=== PATIENT | female | born 1970 | race Two or more races ===

== ENCOUNTER 2016-10-18 19:22 | Emergency (ER) | payer MEDICAID ==
--- NOTE | 2016-10-18 19:49 | EDPHY ---
H & P Stated Complaint: left knee pain and swelling x1 week Time Seen by Provider: 10/18/16 19:39 HPI/ROS: CHIEF COMPLAINT: Left knee pain HISTORY OF PRESENT ILLNESS: The patient is a 46-year-old female who comes to the emergency department complaining of left knee pain for the last 6 days. She states that she was at work carrying out the trash and did not notice a 3 inch drop in the cement. She came down hard on her left knee. She did not fall to the ground but simply stomped hard. She had knee pain immediately that has continued and even worsened over the last few days. She is able to ambulate. She does not feel any laxity. She has an old left knee injury from a decade ago after a fall at [employer]. She had to wear a brace and had some ligamentous injuries but did not have any surgery. She states that her knee swelling progressively throughout the day but that it improves when she elevated at night. REVIEW OF SYSTEMS: Constitutional: denies: chills, fever, recent illness, recent injury EENTM: denies: blurred vision, double vision, nose congestion Respiratory: denies: cough, shortness of breath Cardiac: denies: chest pain, irregular heart rate, lightheadedness, palpitations Gastrointestinal/Abdominal: denies: abdominal pain, diarrhea, nausea, vomiting, blood streaked stools Genitourinary: denies: dysuria, frequency, hematuria, pain Musculoskeletal: See HPI Skin: denies: lesions, rash, jaundice, bruising Neurological: denies: headache, numbness, paresthesia, tingling, dizziness, weakness Hematologic/Lymphatic: denies: blood clots, easy bleeding, easy bruising Immunologic/allergic: denies: HIV/AIDS, transplant EXAM: GENERAL: Well-appearing, obese and in no acute distress. HEAD: Atraumatic, normocephalic. EYES: Pupils equal round and reactive to light, extraocular movements intact, sclera anicteric, conjunctiva are normal. ENT: TMs normal, nares patent, oropharynx clear without exudates. Moist mucous membranes. NECK: Normal range of motion, supple without lymphadenopathy or JVD. LUNGS: Breath sounds clear to auscultation bilaterally and equal. No wheezes rales or rhonchi. HEART: Regular rate and rhythm without murmurs, rubs or gallops. ABDOMEN: Soft, nontender, normoactive bowel sounds. No guarding, no rebound. No masses appreciated. BACK: No CVA tenderness, no spinal tenderness, step-offs or deformities EXTREMITIES: Left knee pain, mild effusion, no erythema, moderate tenderness to tibial plateau medially and laterally. NEUROLOGICAL: Cranial nerves II through XII grossly intact. Normal speech, normal gait. 5/5 strength, normal movement in all extremities, normal sensation PSYCH: Normal mood, normal affect. SKIN: Warm, dry, normal turgor, no visible rashes or lesions. Source: Patient Exam Limitations: No limitations - Personal History LMP (Females 10-55): Irregular Current Tetanus/Diphtheria Vaccine: No Current Tetanus Diphtheria and Acellular Pertussis (TDAP): No Tetanus Vaccine Date: greater than 10 years - Medical/Surgical History Hx Asthma: Yes Hx Chronic Respiratory Disease: Yes Hx Diabetes: No Hx Cardiac Disease: No Hx Renal Disease: No Hx Cirrhosis: No Hx Alcoholism: No Hx HIV/AIDS: No Hx Splenectomy or Spleen Trauma: No Other PMH: asthma, tubal ligation - Social History Smoking Status: Current every day smoker Alcohol Use: Sober Drug Use: None Constitutional: Initial Vital Signs Heart Rate 76 10/18/16 19:32 Respiratory Rate 14 10/18/16 19:32 Blood Pressure 94/71 L 10/18/16 19:32 O2 Sat (%) 100 10/18/16 19:32 O2 Delivery Mode Room Air Allergies/Adverse Reactions: latex Allergy (Verified 04/19/15 13:45) shellfish derived Allergy (Verified 04/19/15 13:45) Home Medications: Medication Instructions Recorded Albuterol Hfa Anes Only [Proair 04/19/15 Hfa Icu (RX)] Medical Decision Making - Diagnostics Imaging: X-ray: Knee x-ray was obtained. I viewed the images myself on the PACS system. My interpretation of the images is: negative for acute disease . The radiologist interpretation is negative. ED Course/Re-evaluation: We discussed the x-ray results. The patient is relieved. I will refer her to Orthopedics and place her in a straight leg brace. She agrees with this plan. She declines further workup or testing at this time. Differential Diagnosis: Partial list of the Differential diagnosis considered include but were not limited to; knee sprain, meniscus injury, and although unlikely based on the history and physical exam, I also considered fracture, dislocation, hematoma, infection. I discussed these differential diagnoses and the plan with the patient as well as the usual and expected course. The patient understands that the diagnosis is provisional and that in medicine we are not always correct and that further workup is often warranted. Usual and customary warnings were given. All of the patient's questions were answered. The patient was instructed to return to the emergency department should the symptoms at all worsen or return, otherwise to followup with the physician as we discussed. Departure - Departure Disposition: Home, Routine, Self-Care Clinical Impression: Knee pain, left Qualifiers: Chronicity: acute Qualified Code(s): M25.562 - Pain in left knee Condition: Good Instructions: Knee Pain (ED) Referrals: NONE *PRIMARY CARE P,. [Unknown] - As per Instructions Falguni Varela MD [Medical Doctor] - As per Instructions
[2016-10-18 20:56] VITALS: BP 106/65; PULSE 81; RESP 16; O2SAT 99
== END 2016-10-18 20:57 | disposition home or self-care (01) ==
DX: S89.92XA Unspecified injury of left lower leg, initial encounter (principal); J45.909 Unspecified asthma, uncomplicated; F17.200 Nicotine dependence, unspecified, uncomplicated; Z91.040 Latex allergy status; X58.XXXA Exposure to other specified factors, initial encounter; Y92.69 Other specified industrial and construction area as the place of occurrence of the external cause; Y99.0 Civilian activity done for income or pay
CPT/HCPCS: L1830

== ENCOUNTER 2017-10-10 18:54 | Emergency (ER) | payer SELFPAY ==
[2017-10-10 19:00] VITALS: TEMP 98.2
[2017-10-10] MEDS ORDERED: NS 500 ML IV ONE (19:29)
[2017-10-10 19:38] LABS: PLATELET COUNT 202 10^3/uL (150-400)
--- NOTE | 2017-10-10 19:38 | CPEKG ---
Heart Rate: 61 RR Interval: 984 P-R Interval: 116 QRSD Interval: 98 QT Interval: 404 QTC Interval: 407 P Cowley: 44 QRS Cowley: 64 T Wave Cowley: 49 EKG Severity - NORMAL ECG - EKG Impression: SINUS RHYTHM Electronically Signed By: Mayte Tse 11-Oct-2017 00:06:15
[2017-10-10 19:47] LABS: INR 1.04 (0.83-1.16); PROTIME(PATIENT) 13.8 SEC (12.0-15.0)
[2017-10-10 19:54] LABS: CREATINE KINASE 53 IU/L (0-156)
[2017-10-10] MEDS ORDERED: ASPIRIN 81 MG CHEWABLE TAB PO ONE (20:38)
--- NOTE | 2017-10-10 20:38 | EDPHY ---
H & P Time Seen by Provider: 10/10/17 19:17 HPI/ROS: HPI Chest pain, lightheaded. 47-year-old female by private vehicle with a friend. This patient reports that she was relaxing at home. She reports that at approximately 6:00 p.m. she felt lightheaded but did not lose consciousness and she had a sensation of tightness in her left upper chest. This lasted about 5-10 minutes and then gradually started to resolved. She is a smoker. Otherwise no history of hyperlipidemia, diabetes or hypertension. She denies any significant family history of coronary artery disease. She also reports that during the episode of chest tightness and she felt short of breath. ROS: Constitutional: No fever, no chills. As above. Eyes: No discharge. No changes in vision. ENT: No sore throat. No nasal congestion or rhinorrhea. Respiratory: No cough. As above. Cardiac: As above, no palpitations. Gastrointestinal: No abdominal pain, no vomiting, no diarrhea. Genitourinary: No hematuria. No dysuria or increased frequency with urination. Musculoskeletal: No back pain. No neck pain. No myalgias or arthralgias. Skin: No rashes. Neurological: No headache. No focal weakness or altered sensation. Past medical history: COPD, asthma, tubal ligation. Social history: Smoker. Denies alcohol. Here with significant other. Physical Exam: General Appearance: Alert, no distress. This patient is responding to questions appropriately and in full sentences. This patient appears well- hydrated and well-nourished. Eyes: Pupils equal and round no pallor or injection. No lid edema, erythema or injection. Respiratory: There are no retractions, lungs are clear to auscultation with good air movement bilaterally. Cardiovascular: Regular rate and rhythm. No murmur. Gastrointestinal: Abdomen is soft and nontender, no masses, bowel sounds normal. No focal tenderness at McBurney's point. No Feng sign. Neurological: Motor sensory function is grossly intact. Cranial nerves are normal. Gait is normal. Skin: Warm and dry, no rashes. Musculoskeletal: Neck is supple and nontender. Extremities are symmetrical. All joints range without pain or impingement. Psychiatric: No agitation. No depression. Database: EKG: EKG time is 7:52 p.m.; EKG shows a narrow complex normal sinus rhythm with a ventricular rate of 61. The [place], QRS, QT intervals are within normal limits. There are no ST-T wave changes indicative of ischemic or injury pattern. No evidence of right heart strain. Interpreted by me. Imaging: Chest x-ray AP portable; the cardiac mediastinal silhouette is unremarkable. No evidence of infiltrate or pneumothorax. No acute cardiopulmonary disease process noted. Interpreted by me. Procedures: Emergency department course: Vital signs reviewed and are normal. IV placed. She was placed on a cardiac sonographer. She was started on a 500 cc of IV normal saline to be given over the next hour. She was given 324 mg of chewed aspirin. EKG obtained and reviewed by myself. 8:40 p.m., patient re-evaluated. Resting comfortably at this time. No chest pain. No shortness of breath. Results of diagnostic workup discussed with her and her . She is asking to go home at this time. I discussed admission with her. She does not want to be admitted. The patient competently engages in shared decision making. They demonstrate capacitance to make decisions. The patient does agree to get a 2nd troponin at 10:00 p.m.. This will be a 4 hr troponin from the onset of her symptoms. 11:44 p.m., 2nd troponin is negative. Patient offered admission but declined again as above. She understands risks. Follow-up with Cardiology discussed. Return to emergency department precautions reviewed. All of her questions were answered. She was discharged in good condition with her . Differential Diagnosis: The differential diagnosis on this patient includes but is not limited to musculoskeletal chest pain, soft vaginal spasm, anxiety reaction. Acute coronary syndrome, pulmonary embolism, aortic dissection pericarditis, myocarditis, pneumonia unlikely. This represents a partial list of diagnoses considered. These considerations are based on history, physical exam, past history, reassessment and diagnostic testing. Smoking Status: Current every day smoker Constitutional: Initial Vital Signs Temperature (C) 36.8 C 10/10/17 18:56 Heart Rate 79 10/10/17 18:56 Respiratory Rate 20 10/10/17 18:56 Blood Pressure 121/79 H 18 18:56 O2 Sat (%) 97 10/10/17 18:56 O2 Delivery Mode Room Air Allergies/Adverse Reactions: latex Allergy (Verified 10/10/17 18:56) shellfish derived Allergy (Verified 10/10/17 18:56) Home Medications: Medication Instructions Recorded Albuterol Hfa Anes Only [Proair 04/19/15 Hfa Icu (RX)] Medical Decision Making - Diagnostics Imaging Results: Imaging Impressions Chest X-Ray 10/10/17 19:29 IMPRESSION: No evidence for acute cardiopulmonary abnormality. - Data Points Laboratory Results: Laboratory Results 10/10/17 19:25 10/10/17 19:25 10/10/17 10/10/17 10/10/17 22:45 19:25 19:25 WBC RBC Hgb Hct MCV MCH MCHC RDW Plt Count MPV Neut % (Auto) Lymph % (Auto) [place] % (Auto) Eos % (Auto) Baso % (Auto) Nucleat RBC Rel Count Absolute Neuts (auto) Absolute Lymphs (auto) Absolute Monos (auto) Absolute Eos (auto) Absolute Basos (auto) Absolute Nucleated RBC Immature Gran % Immature Gran # PT 13.8 SEC SEC (12.0-15.0) INR 1.04 (0.83-1.16) APTT 26.8 SEC SEC (23.0-38.0) D-Dimer 0.47 ug/mLFEU ug/mLFEU (0.00-0.50) Sodium 143 mEq/L mEq/L (135-145) Potassium 4.1 mEq/L mEq/L (3.5-5.2) Chloride 108 mEq/L mEq/L (97-110) Carbon Dioxide 23 mEq/l mEq/l (22-31) Anion Gap 12 mEq/L mEq/L (8-16) BUN 14 mg/dL mg/dL (7-23) Creatinine 0.9 mg/dL mg/dL (0.6-1.0) Estimated GFR > 60 Glucose 85 mg/dL mg/dL (70-100) Calcium 9.5 mg/dL mg/dL (8.5-10.4) Creatine Kinase 53 IU/L IU/L (0-156) CK-MB (CK-2) Fraction 0.52 ng/mL ng/mL (0.00-3.19) Troponin I < 0.012 ng/mL ng/mL < 0.012 ng/mL ng/mL (0.000-0.034) (0.000-0.034) 10/10/17 19:25 WBC 12.37 10^3/uL H 10^3/uL (3.80-9.50) RBC 5.12 10^6/uL 10^6/uL (4.18-5.33) Hgb 16.0 g/dL g/dL (12.6-16.3) Hct 47.7 % H % (38.0-47.0) MCV 93.2 fL fL (81.5-99.8) MCH 31.3 pg pg (27.9-34.1) MCHC 33.5 g/dL g/dL (32.4-36.7) RDW 12.1 % % (11.5-15.2) Plt Count 202 10^3/uL 10^3/uL (150-400) MPV 11.9 fL H fL (8.7-11.7) Neut % (Auto) 64.1 % % (39.3-74.2) Lymph % (Auto) 24.0 % % (15.0-45.0) [place] % (Auto) 6.9 % % (4.5-13.0) Eos % (Auto) 3.6 % % (0.6-7.6) Baso % (Auto) 0.9 % % (0.3-1.7) Nucleat RBC Rel Count 0.0 % % (0.0-0.2) Absolute Neuts (auto) 7.93 10^3/uL H 10^3/uL (1.70-6.50) Absolute Lymphs (auto) 2.97 10^3/uL 10^3/uL (1.00-3.00) Absolute Monos (auto) 0.85 10^3/uL H 10^3/uL (0.30-0.80) Absolute Eos (auto) 0.45 10^3/uL H 10^3/uL (0.03-0.40) Absolute Basos (auto) 0.11 10^3/uL H 10^3/uL (0.02-0.10) Absolute Nucleated RBC 0.00 10^3/uL 10^3/uL (0-0.01) Immature Gran % 0.5 % % (0.0-1.1) Immature Gran # 0.06 10^3/uL 10^3/uL (0.00-0.10) PT INR APTT D-Dimer Sodium Potassium Chloride Carbon Dioxide Anion Gap BUN Creatinine Estimated GFR Glucose Calcium Creatine Kinase CK-MB (CK-2) Fraction Troponin I Medications Given: Discontinued Medications Aspirin (Aspirin) 324 mg PO EDNOW ONE Stop: 10/10/17 20:39 Last Admin: 10/10/17 20:49 Dose: 324 mg Sodium Chloride (Ns) 500 mls @ 1,000 mls/hr IV EDNOW ONE PRN Reason: Protocol Stop: 10/10/17 19:58 Last Admin: 10/10/17 19:56 Dose: 500 mls Departure - Departure Disposition: Home, Routine, Self-Care Clinical Impression: Lightheaded, Chest discomfort Condition: Good Instructions: Lightheadedness (ED), Chest Pain (ED) Additional Instructions: Read and follow provided instructions. Follow-up with Cardiology, Dr. Omid Landeros or 1 of his partners at [facility] as discussed for re-evaluation within the next 1-2 days. Keep well hydrated. Avoid any strenuous activity until seen by Cardiology. Return to the emergency department for return of chest pain, lightheadedness or other serious concerns. Referrals: Omid Landeros MD [Medical Doctor] - As per Instructions
[2017-10-10 22:40] VITALS: RESP 16
[2017-10-10 23:59] VITALS: BP 110/85; PULSE 72; O2SAT 96
== END 2017-10-10 23:58 | disposition home or self-care (01) ==
DX: R42 Dizziness and giddiness (principal); R07.89 Other chest pain; J44.9 Chronic obstructive pulmonary disease, unspecified; F17.200 Nicotine dependence, unspecified, uncomplicated; E86.9 Volume depletion, unspecified; Z91.040 Latex allergy status